=== PATIENT | female | born 1965 | race Caucasian/White ===

== ENCOUNTER 2017-04-17 00:52 | Emergency (ER) | payer BC ==
[~2017-04-17] VITALS: Ht 165.1 cm; Wt 49.9 kg
[2017-04-17] MEDS ORDERED: PROGESTERONE100 MG PO (00:54)
[2017-04-17] MEDS ORDERED: LISINOPRIL5 MG ORAL (00:54)
[2017-04-17] MEDS ORDERED: PREMARIN0.9 MG ORAL (00:54)
[2017-04-17 01:01] VITALS: BP 139/96
[2017-04-17 01:48] LABS: BASOPHILS % (AUTO) 1.2 % (0.0-2.0); EOSINOPHILS % (AUTO) 4.6 % (0.0-3.0); LYMPHOCYTES % (AUTO) 14.4 % (20.0-45.0); MEAN CORPUSCULAR HEMOGLOBIN 34.1 PG (27.0-31.0); MEAN CORPUSCULAR HGB CONC 32.5 G/DL (32.0-36.0); MEAN CORPUSCULAR VOLUME 105 FL (80-99); MONOCYTES % (AUTO) 7.6 % (1.0-10.0); NEUTROPHILS % (AUTO) 72.2 % (45.0-75.0); PLATELET COUNT 373 K/UL (150-450); RED BLOOD COUNT 3.77 M/UL (4.20-5.40); RED CELL DISTRIBUTION WIDTH 11.8 % (11.6-14.8); WHITE BLOOD COUNT 9.9 K/UL (4.8-10.8)
[2017-04-17 01:58] LABS: ANION GAP 5 mmol/L (5-15); CALCIUM 8.3 MG/DL (8.5-10.1); CARBON DIOXIDE 31 MMOL/L (21-32); CHLORIDE 105 MMOL/L (98-107); CREATININE 0.7 MG/DL (0.55-1.30); GLOMERULAR FILTRATION RATE > 60 mL/min (>60); SODIUM 141 MMOL/L (136-145)
[2017-04-17 02:12] LABS: ALANINE AMINOTRANSFERASE 38 U/L (12-78); ALBUMIN/GLOBULIN RATIO 1.5 (1.0-2.7); ASPARTATE AMINO TRANSFERASE 26 U/L (15-37); CKMB 0.8 NG/ML (0.0-3.6)
--- NOTE | 2017-04-17 02:23 | Emergency Room Report ---
History of Present Illness General Chief Complaint: Dyspnea/Respdistress Source: Patient, Family Member Present Illness HPI 51-year-old female with known tracheal stenosis presents with "multiple episodes of passing out at home" and "feeling like someone choking me". Sees Dr. Jesus at [facility], has had multiple "laser surgery to correct my stenosis ". Has surgery scheduled today in 12 hours at [facility]. They saw Dr. Jesus yesterday, they were advised not to have steroids at the time. Patient denies any other knowledge of other medications to help her stenosis in the ER. Denies recent fevers or chills or cough. Allergies: Coded Allergies: No Known Allergies (Unverified , 04/17/17) Patient History Past Medical History: none Past Surgical History: none Pertinent Family History: none Social History: Denies: smoking, alcohol use, drug use Now: No Immunizations: UTD Reviewed Nursing Documentation: PMH: Agreed, PSxH: Agreed Nursing Documentation-PMH Hx Hypertension: Yes - tracheal stenosis Review of Systems All Other Systems: negative except mentioned in HPI Physical Exam Vital Signs Date Time Temp Pulse Resp B/P (MAP) Pulse Ox O2 Delivery O2 Flow Rate FiO2 04/17/17 00:49 96.6 108 22 139/96 100 Non-Rebreather 15.0 Sp02 EP Interpretation: reviewed, normal General Appearance: normal inspection, well appearing, alert, GCS 15, non-toxic , mild distress, other - no obvious audible stridor Head: normocephalic, atraumatic Eyes: bilateral eye PERRL, bilateral eye EOMI ENT: normal ENT inspection, hearing grossly normal, normal pharynx, no angioedema, normal voice, TMs + canals normal, uvula midline, moist mucus membranes Neck: normal inspection, full range of motion, supple, thyroid normal, no meningismus, no bony tend Respiratory: normal inspection, lungs clear, normal breath sounds, no rhonchi, no retraction, accessory muscle use, speaking full sentences, wheezing, other - insp/exp wheezing Cardiovascular #1: regular rate, rhythm, no edema, no JVD, normal capillary refill Gastrointestinal: normal inspection, normal bowel sounds, non tender, soft, no mass, no peritonitis, non-distended, no guarding, no hernia, no pulsatile mass Genitourinary: no CVA tenderness Musculoskeletal: normal inspection, back normal, normal range of motion, no calf tenderness, pelvis stable, Braxton's Sign negative Neurologic: normal inspection, alert, oriented x3, responsive, tool 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 as tested, motor strength/tone normal, cerebellar normal, normal gait, speech normal Psychiatric: normal inspection, judgement/insight normal, mood/affect normal, no suicidal/homicidal ideation, no delusions Skin: normal inspection, normal color, no rash Lymphatic: normal inspection, no adenopathy Procedures Critical Care Time Critical Care Time CC time 45min Critical care time endorsed for this patient for her known tracheal stenosis Critical care time includes review of laboratory tests, imaging, review of EMR, 2x phone calls with [facility], advocating for patient transfer, dosing of racemic epi, multiple bedside reassessment. Critical care time also likely includes assessment of fluid status, stabilization of vital signs, selection and dosing of appropriate antibiotics, selection and dosing of Aspirin/Plavix/Heparin/Lovenox, discussion with PMD/ attending hospitalist/mechanical maintenance engineer. Critical care time does not include any procedures which are documented elsewhere in this EMR. Medical Decision Making Diagnostic Impression: Primary Impression: Dyspnea Qualified Codes: R06.00 - Dyspnea, unspecified Additional Impression: History of tracheal stenosis ER Course [id number] with known tracheal stenosis with acute SOB VS with tachycardia, afebrile O2 Sat 96-98% on RA Patient feels better with supplemental O2 [facility] desk attempting to contact Dr Jesus as of 230am Accepted by Dr Burnette on-call for Dr Jesus for transfer to tele bed at [facility] at 315am Recommended racemic epi which was given Recommended decadron but patient and staunchly refused, citing Dr Jesus advised against it "because of upcoming procedure." Labs, CXR unremarkable for acute process No leukocytosis CXR unremarkable patient stable in ED pending transfer to [facility]. EKG Diagnostic Results Rate: normal Rhythm: NSR ASA given to the pt in ED: No Rhythm Strip Diag. Results EP Interpretation: yes Rate: 102 Rhythm: NSR, no PVC's Chest X-Ray Diagnostic Results Chest X-Ray Diagnostic Results : Chest X-Ray Ordered: Yes # of Views/Limited/Complete: 1 View Indication: Shortness of Breath EP Interpretation: Yes Interpretation: no consolidation, no effusion, no pneumothorax, no acute cardiopulmonary disease Impression: No acute disease Electronically Signed by: Dr Esteban Smart MD Last Vital Signs Date Time Temp Pulse Resp B/P (MAP) Pulse Ox O2 Delivery O2 Flow Rate FiO2 04/17/17 01:01 96.6 100 22 139/96 100 Non-Rebreather 15.0 Status: improved Disposition: ADMITTED INPATIENT Condition: Serious Referrals: NOT CHOSEN IPA/,REFERRING (PCP) ESTEBAN SMART M.D. Apr 17, 2017 02:23
[2017-04-17] MEDS ORDERED: Racemic EPINEPHrine 2.25% 0.5ml HHN ONE (02:45)
[2017-04-17] MEDS ORDERED: Dexamethasone 4mg/ml vial IVP ONE (02:45)
[2017-04-17 03:00] VITALS: BP 111/86
[2017-04-17 04:30] VITALS: BP 122/84
[2017-04-17 04:50] VITALS: BP 122/84
--- NOTE | 2017-04-17 11:41 | Diagnostic Imaging Report ---
Indication: Shortness of breath Technique: One view of the chest Comparison: none Findings: Lungs and pleural spaces are clear. Heart size is normal surgical clips are seen in the left upper quadrant Impression: No acute process
--- NOTE | 2017-04-19 00:25 | Cardiology Report ---
APPROVED REPORT EKG Measurement Heart [id number] Normal sinus rhythm Possible Left atrial enlargement Borderline ECG
== END 2017-04-17 04:45 | disposition other institution (70) ==
LOC: EDBD 00:52 → EMR 01:20
DX: J39.8 Other specified diseases of upper respiratory tract (principal)
CPT/HCPCS: 36415; 71010; 80053; 82550; 82553; 83880; 84484; 85025; 93005; 96374